=== PATIENT | male | born 1995 | race Caucasian/White ===

== ENCOUNTER 2018-04-19 12:04 | Day surgery (SDC) | payer OTHER, MEDICAID ==
[2018-04-19] MEDS ORDERED: LIDOCAINE 2% (SDV) 5 ML INJ (14:21)
[2018-04-19] MEDS ORDERED: PROPOFOL 20 ML ×2 (14:21→14:38)
== END 2018-04-19 15:21 | disposition home or self-care (01) ==
LOC: GIL 12:04
DX: K29.70 Gastritis, unspecified, without bleeding (principal); E78.5 Hyperlipidemia, unspecified
CPT/HCPCS: 43239; 88305; 88312

== ENCOUNTER 2018-05-19 11:32 | Day surgery (SDC) | payer OTHER ==
[2018-05-19] MEDS ORDERED: PROPOFOL 20 ML (14:38)
[2018-05-19] MEDS ORDERED: FENTAnyl 50 MCG/ML VIAL (14:38)
[2018-05-19] MEDS ORDERED: MIDAZOLAM 1 MG/ML 2 ML INJ (14:39)
== END 2018-05-19 16:03 | disposition home or self-care (01) ==
LOC: GIL 11:32
DX: R93.3 Abnormal findings on diagnostic imaging of other parts of digestive tract (principal); K21.9 Gastro-esophageal reflux disease without esophagitis; E78.00 Pure hypercholesterolemia, unspecified
CPT/HCPCS: 45380; 88305